=== PATIENT | male | born 1975 | race Caucasian/White ===

== ENCOUNTER → 2024-11-21 | Outpatient (CLI) | payer BC, SELFPAY ==
[2024-11-21 23:22] LABS: Absolute Lymphocyte Count 3.47 X10^3/uL (0.83-4.51); Absolute Neutrophil Count 4.1 X10^3/uL (2.0-7.7); Basophil# 0.06 X10^3/uL; Basophil% 0.7 % (0-1); Eosinophils% 4.5 % (0-5); Hematocrit 44.2 % (40-54); Hemoglobin 14.9 g/dL (13.0-16.5); Lymphocyte # 3.47 X10^3/ul (0.83-4.51); Lymphocyte % 39.4 % (19-41); Mean Corp Hgb Conc 33.7 g/dL (32-36); Mean Corpuscular Hgb 30.8 pg (27.0-32.0); Mean Corpuscular Volume 91.3 fL (80-94); Mean Platelet Vol. 9.7 fl (6.2-12.0); Monocyte# 0.77 X10^3/uL; Monocyte% 8.7 % (0-10); NRBC Flagged by Analyzer 0 % (0-5); Neutrophil # 4.09 X10^3/uL (2.7-7.7); Neutrophil % 46.5 % (47-70); Platelet Count 305 K/mm3 (150-450); RBC Distribution Width CV 12.7 % (11.6-14.6); RBC Distribution Width SD 42.3 fl (35.1-43.9); Red Blood Count 4.84 M/mm3 (4.6-6.2); White Blood Count 8.8 K/mm3 (4.4-11.0)
[2024-11-21 23:40] LABS: AST(SGOT) 51 U/L (<=37); Alanine Aminotransfer ALT/SGPT 46 U/L (<=46); Albumin, Serum 4.5 g/dL (3.5-5.0); Alkaline Phosphatase 76 U/L (40-129); Anion Gap 11 (5-15); BUN 13 mg/dL (4-19); BUN/Creat Ratio 13.2 RATIO (10-20); Calcium,Total 9.2 mg/dL (7.6-11.0); Carbon Dioxide 24.1 mmol/L (21.0-32.0); Chloride 102 mmol/L (98-108); Cholesterol 181 mg/dL (<=200); Creatinine, Serum 0.96 mg/dL (0.70-1.20); EST Glomerular Filtration Rate 98 (>60); Globulin 2.2 g/dL (2.2-4.2); Glucose 103 mg/dL (70-99); High Density Lipoprotein 25 mg/dL; Low Density Lipoprotein Calc. 118 mg/dL; PSA,Total- Diagnostic 1.25 ng/mL (0.00-4.00); Potassium 5.2 mmol/L (3.3-5.1); Protein, Total 6.7 g/dL (5.9-8.4); Sodium Level 137 mmol/L (133-145); Total Bilirubin 0.27 mg/dL (0.00-1.30); Triglycerides 192 mg/dL; Very Low Density Lipoprotein 38 mg/dL (5-40); cholesterol:hdl ratio screen 7.36
== END | disposition home or self-care (01) ==
PROVIDERS: Referring Provider Nurse Practitioner; Visit Provider Nurse Practitioner
DX: N40.1 Benign prostatic hyperplasia with lower urinary tract symptoms (principal); R30.0 Dysuria; R35.0 Frequency of micturition; N52.9 Male erectile dysfunction, unspecified
CPT/HCPCS: 80053; 80061; 84153; 84403; 84443; 85025; 87086